=== PATIENT | male | born 1990 | race African-American/Black ===

== ENCOUNTER 2018-01-01 13:08 | Emergency (ER) | payer MEDICAID, OTHER ==
[~2018-01-01] VITALS: Ht 190.5 cm; Wt 78.0 kg
[2018-01-01 13:46] VITALS: BP 119/63
[2018-01-01] MEDS ORDERED: IBUPROFEN 600MG TABLET PO ONE (14:45)
[2018-01-01] MEDS ORDERED: SODIUM CHLORIDE 0.9% 1,000 ML IV ONE (16:30)
== END 2018-01-01 16:47 | disposition home or self-care (01) ==
LOC: ER 13:08
DX: J32.9 Chronic sinusitis, unspecified (principal)
CPT/HCPCS: 99282; J7030